=== PATIENT | male | born 1990 ===

== ENCOUNTER 2022-05-10 08:57 | Emergency (ER) | payer SELFPAY ==
[2022-05-10] MEDS ORDERED: Acetaminophen 500 MG TAB ONE ×2 (09:48→10:03)
[2022-05-10] MEDS ORDERED: Dexamethasone 10 MG/ML VIAL ONE ×2 (09:48→10:03)
[2022-05-10] MEDS ORDERED: Bicillin LA 1.2 MILLION UNITS/2 ML SYRINGE ONE (10:03)
== END 2022-05-10 10:20 | disposition home or self-care (01) ==
LOC: ERS 08:57
DX: J02.0 Streptococcal pharyngitis (principal)
CPT/HCPCS: 87430; 96372; 99283; J0561; J1100